=== PATIENT | female | born 1950 | race Caucasian/White ===

== ENCOUNTER 2020-03-26 14:26 | Outpatient (REF) | payer BC, SELFPAY | END 2020-03-26 14:27 | disposition home or self-care (01) | LOC: HO.BBR 14:26 | PROVIDERS: PCP Internal Medicine Endocrinology, Diabetes & Metabolism; Visit Provider Internal Medicine Hematology | DX: D75.1 Secondary polycythemia (principal) | CPT/HCPCS: 36415; 85018; 99195 ==

== ENCOUNTER 2020-08-10 12:47 | Outpatient (REF) | payer BC, SELFPAY | END 2020-08-10 12:48 | disposition home or self-care (01) | LOC: HO.BBR 12:47 | PROVIDERS: Visit Provider Internal Medicine Hematology | DX: D75.1 Secondary polycythemia (principal) | CPT/HCPCS: 85018; 99195 ==

== ENCOUNTER 2021-04-19 09:49 | Outpatient (REF) | payer MEDICARE, SELFPAY | END 2021-04-19 09:50 | disposition home or self-care (01) | LOC: HO.BBR 09:49 | PROVIDERS: Visit Provider Internal Medicine Hematology | DX: D75.1 Secondary polycythemia (principal) | CPT/HCPCS: 85018; 99195 ==

== ENCOUNTER 2021-12-15 10:54 | Outpatient (REF) | payer MEDICARE, SELFPAY | END 2021-12-15 10:55 | disposition home or self-care (01) | LOC: HO.BBR 10:54 | PROVIDERS: Visit Provider Internal Medicine Hematology | DX: D75.1 Secondary polycythemia (principal) | CPT/HCPCS: 85014; 85018; 99195 ==

== ENCOUNTER 2022-08-22 08:53 | Outpatient (REF) | payer MEDICARE, SELFPAY | END 2022-08-22 08:54 | disposition home or self-care (01) | LOC: HO.BBR 08:53 | PROVIDERS: PCP Internal Medicine Endocrinology, Diabetes & Metabolism; Visit Provider Internal Medicine Hematology | DX: D75.1 Secondary polycythemia (principal) | CPT/HCPCS: 85018 ==